=== PATIENT | male | born 1955 | race Caucasian/White ===

== ENCOUNTER 2018-01-12 17:28 | Emergency (ER) | payer BC ==
--- NOTE | 2018-01-12 17:52 | ERPHSYRPT ---
- History of Present Illness Time Seen by Provider: 01/12/18 17:32 Source: patient Exam Limitations: no limitations Patient Subjective Stated Complaint: Pt states "I have had head aches and low blood pressure for the past couple of weeks. 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 Pt ambulates with an upright steady gait, able to speak in clear full sentences. No apparent respiratory distress. Physician History: Patient with history of migraine headaches and coronary artery disease who presents with headaches, lightheadedness and dizziness. Patient states that he has had chronic migraine headaches that is in the frontal, bilateral, throbbing , intermittent and associated with photophobia and nausea. Patient states 5 days ago he noticed increase in dizziness, lightheadedness, difficulty gripping with both hands and generalized weakness. Patient denies any focal or unilateral symptoms at that time. Patient states that he called his Dr. an arrangement was made for him to be seen in the office. Patient states that symptoms did resolve and he did feel better, but had an episode 2 days ago similar with lightheadedness and dizziness. He states that symptoms were not as severe.. Patient denies any blurred vision, facial/focal deficit, numbness or tingling, no altered mental status and no speech deficits. Patient denies any recent illnesses well. patient had a head CT today which showed right sided subcortical hyperattenuation area. This was consistent with ischemic changes. No hemorrhage was noted. Patient was sent to the ER for further evaluation and care. Patient does take baby aspirin every day. Timing/Duration: day(s) (5), intermittent Severity: moderate Character of Deficits: new weakness, other (dizziness, difficulty gripping objects) Deficits: off balance, decrease ability to stand, decrease ability to walk Baseline/Normal Cognition: alert oriented x 3 Current Cognition: alert oriented x 3 Baseline Gait: walks w/o assistance Associated Symptoms: weakness (generalize), trouble walking, headache, No confusion, No loss of consciousness, No nausea, No vomiting, No numbness/ tingling in legs/feet, No paresthesia, No ringing in ears, No slurred speech, No vision changes, No chest pain Allergies/Adverse Reactions: No Known Drug Allergies Allergy (Unverified 12/02/13 12:18) Home Medications: Esomeprazole Magnesium [Nexium] 40 mg PO DAILY 12/02/13 [History] Aspirin [Aspir-Low] 81 mg PO DAILY 01/12/18 [History] Pravastatin Sodium [Pravastatin Sodium] 20 mg PO DAILY 01/12/18 [History] Ubidecarenone [Co Q-10] 100 mg PO DAILY 01/12/18 [History] Hx Tetanus, Diphtheria Vaccination/Date Given: No Hx Influenza Vaccination/Date Given: Yes Hx Pneumococcal Vaccination/Date Given: No Immunizations Up to Date: Yes - Review of Systems Constitutional: No Fever, No Chills Eyes: No Symptoms Ears, Nose, & Throat: No Symptoms Respiratory: No Symptoms, No Cough, No Dyspnea Cardiac: No Symptoms, No Chest Pain, No Edema, No Syncope Abdominal/Gastrointestinal: No Abdominal Pain, No Nausea, No Vomiting, No Diarrhea Genitourinary Symptoms: No Dysuria Musculoskeletal: No Symptoms, No Back Pain, No Neck Pain Skin: No Symptoms, No Rash Neurological: Dizziness, Gait Changes, Headache, No Focal Weakness, No Paralysis , No Parasthesia, No Sensory Changes, No Speech Changes Psychological: No Symptoms Endocrine: No Symptoms All Other Systems: Reviewed and Negative - Past Medical History Pertinent Past Medical History: Yes Cardiac History: Angina, Other GI Medical History: GERD - Past Surgical History Past Surgical History: Yes Musculoskeletal: Orthopedic Surgery Other Surgical History: LASIK,. Rt eye surgery - Social History Smoking Status: Never smoker Exposure to second hand smoke: Yes Drug Use: none Patient Lives Alone: No - Nursing Vital Signs Nursing Vital Signs: Initial Vital Signs Temperature 98.9 F 01/12/18 17:33 Pulse Rate 80 01/12/18 17:33 Respiratory Rate 18 01/12/18 17:33 Blood Pressure 137/94 01/12/18 17:33 O2 Sat by Pulse Oximetry 97 01/12/18 17:33 Pain Scale Pain Intensity 2 - Kriss Coma Scale Best Eye Response (Kriss): (4) open spontaneously Best Verbal Response (Kriss): (5) oriented Best Motor Response (Kriss): (6) obeys commands [place] Total: 15 - Physical Exam General Appearance: no apparent distress, alert Eye Exam: bilateral eye: normal inspection, PERRL, EOMI Ears, Nose, Throat Exam: normal ENT inspection, moist mucous membranes Neck Exam: normal inspection, non-tender, supple Respiratory: normal breath sounds, lungs clear, airway intact, No respiratory distress Cardiovascular: regular rate/rhythm, No edema Gastrointestinal: soft, No tenderness, No distention Back Exam: normal inspection Extremity Exam: normal inspection, No pedal edema Peripheral Pulses: dorsalis-pedis (R): 2+, dorsalis-pedis (L): 2+ Mental Status: alert, oriented 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, 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 These changes are consistent with acute ischemia) Ordered Tests: Active Orders 24 hr Category Date Time Status Gum Cook STAT Care 01/12/18 17:44 Active EKG-ER Only STAT Care 01/12/18 17:44 Active IV Insertion STAT Care 01/12/18 17:44 Active CBC W DIFF Stat Lab 01/12/18 17:50 Completed CK-Creatinine Phosphokinase Stat Lab 01/12/18 17:50 Completed CMP Stat Lab 01/12/18 17:50 Completed TROPONIN Q3H Lab 01/12/18 17:50 Completed TROPONIN Q3H Lab 01/12/18 20:45 Ordered TROPONIN Q3H Lab 01/12/18 23:45 Ordered Lab/Rad Data: Laboratory Result Diagrams 01/12/18 17:50 01/12/18 17:50 Laboratory Results 01/12/18 01/12/18 01/12/18 Range/Units 17:50 17:50 17:50 WBC 8.8 (4.0-10.5) K/mm3 RBC 5.02 (4.1-5.6) M/mm3 Hgb 15.5 (12.5-18.0) gm/dl Hct 46.2 (42-50) % MCV 92.0 (78-100) fl MCH 30.9 (26-32) pg MCHC 33.5 (32-36) g/dl RDW 14.2 H (11.5-14.0) % Plt Count 318 (150-450) K/mm3 MPV 9.0 (6-9.5) fl Gran % 56.9 (36.0-66.0) % Lymphocytes % 28.2 (24.0-44.0) % Monocytes % 10.7 (0.0-12.0) % Eosinophils % 3.6 (0.00-5.0) % Basophils % 0.6 (0.0-0.4) % Basophils # 0.05 (0-0.4) Sodium 138 (137-145) mmol/L Potassium 3.9 (3.5-5.1) mmol/L Chloride 104 (98-107) mmol/L Carbon Dioxide 23 (22-30) mmol/L Anion Gap 15.8 H (5-15) MEQ/L BUN 17 (9-20) mg/dL Creatinine 1.20 (0.66-1.25) mg/dL Estimated GFR > 60 ML/MIN Glucose 100 (74-106) mg/dL Calcium 9.2 (8.4-10.2) mg/dL Total Bilirubin 0.20 (0.2-1.3) mg/dL AST 24 (17-59) U/L ALT 24 (0-50) U/L Alkaline Phosphatase 76 (38-126) U/L Creatine Kinase 74 (55-170) U/L Troponin I < 0.012 (0.000-0.034) ng/mL Serum Total Protein 6.7 (6.3-8.2) g/dL Albumin 3.9 (3.5-5.0) g/dL - Progress Progress: unchanged Progress Note: Patiently given full dose aspirin 01/12/18 18:[address].: Other (Dr. Eagle, neurologist notified about pt. and agreed to accept for further care. Dr. Garcia, hospitalist was also notified and agreed to accept pt.) Counseled pt/family regarding: lab results, diagnosis, rad results - Departure Time of Disposition: 19:15 Departure Disposition: Transfer Clinical Impression: CVA (cerebral vascular accident) Condition: Stable Critical Care Time: No Referrals: MEKA,JOON F [Primary Care Provider] -
[2018-01-12 18:03] LABS: BASOPHIL % 0.6 % (0.0-0.4); Basophil (Absolute #) 0.05 (0-0.4); Eosinophil % 3.6 % (0.00-5.0); Eosinophil (Absolute #) 0.32 (0-0.5); Granulocyte Absolute (ANC) 4.99 (1.4-6.9); Granulocytes % 56.9 % (36.0-66.0); Hematocrit 46.2 % (42-50); Hemoglobin 15.5 gm/dl (12.5-18.0); Lymphocyte (Absolute #) 2.47 (1.0-4.6); Lymphocytes % 28.2 % (24.0-44.0); Mean Corpuscular Hemoglobin 30.9 pg (26-32); Mean Corpuscular Hgb Concent. 33.5 g/dl (32-36); Monocyte (Absolute #) 0.94 (0.0-1.3); Monocytes % 10.7 % (0.0-12.0); Platelet Count 318 K/mm3 (150-450); Red Blood Count 5.02 M/mm3 (4.1-5.6); Red Cell Distribution Width 14.2 % (11.5-14.0); White Blood Count 8.8 K/mm3 (4.0-10.5)
[2018-01-12 18:21] LABS: ALBUMIN 3.9 g/dL (3.5-5.0); ALKALINE PHOSPHATASE 76 U/L (38-126); ANION GAP 15.8 MEQ/L (5-15); BLOOD UREA NITROGEN 17 mg/dL (9-20); CHLORIDE 104 mmol/L (98-107); CK-Creatinine Phosphokinase 74 U/L (55-170); Calcium 9.2 mg/dL (8.4-10.2); Carbon Dioxide 23 mmol/L (22-30); Glucose 100 mg/dL (74-106); Potassium 3.9 mmol/L (3.5-5.1); SGOT/AST 24 U/L (17-59); SGPT/ALT 24 U/L (0-50); SODIUM 138 mmol/L (137-145); Total Protein 6.7 g/dL (6.3-8.2)
[2018-01-12 20:28] VITALS: BP 125/80
[2018-01-12 20:48] VITALS: PULSE 70; O2SAT 98
== END 2018-01-12 20:48 | disposition short-term general hospital (02) ==
LOC: ED 17:28
DX: I63.9 Cerebral infarction, unspecified (principal); R51 Headache; R42 Dizziness and giddiness; Z79.82 Long term (current) use of aspirin
CPT/HCPCS: 36000; 36415; 80053; 82550; 84484; 85025; 93005; 93041; 99285

== ENCOUNTER 2019-03-18 16:42 | Emergency (ER) | payer MEDICARE, BC ==
[2019-03-18 17:11] VITALS: BP 116/74; PULSE 66; O2SAT 97
[2019-03-18] MEDS ORDERED: KEFLEX 500 MG PO ONE (17:17)
[2019-03-18] MEDS ORDERED: Adacel Vial IM ONE ×2 (17:17→17:34)
[2019-03-18] MEDS ORDERED: XYLOCAINE 1% HCL 20 ML MDV ONE (17:19)
--- NOTE | 2019-03-18 17:29 | ERPHSYRPT ---
- History of Present Illness Time Seen by Provider: 03/18/19 17:18 Source: patient Patient Subjective Stated Complaint: cut left thumb while cutting potatoes Triage Nursing Assessment: 1cm laceration to end of left thumb with minimal bleeding. is able to bend thumb without difficulty. Physician History: mild ache left thumb today, cut with knife by accident, bleeding controlled, transverse 1cm laceration, nontender bony thumb, sen and pulses intact, jessica, no other injury Allergies/Adverse Reactions: No Known Drug Allergies Allergy (Verified 03/18/19 16:57) Home Medications: Ubidecarenone [Co Q-10] 100 mg PO DAILY 01/12/18 [History] Atorvastatin Calcium [Lipitor] 80 mg PO DAILY 03/18/19 [History] Clopidogrel Bisulfate [Clopidogrel] 75 mg PO DAILY 03/18/19 [History] Gabapentin 600 mg PO TID 03/18/19 [History] Isomethept/Dichlphn/Acetaminop [Wanfsibbvd-Glqyfjutmc-Xvjuzjvt] 1 each PO UD [History] Omeprazole 20 mg PO DAILY 03/18/19 [History] Hx Tetanus, Diphtheria Vaccination/Date Given: No Hx Influenza Vaccination/Date Given: Yes Hx Pneumococcal Vaccination/Date Given: Yes - Review of Systems Musculoskeletal: No Joint Pain Skin: Skin Lesions Neurological: No Dizziness - Past Medical History Pertinent Past Medical History: Yes Neurological History: Migraines, Stroke Cardiac History: Myocardial Infarction ([place]) Respiratory History: No Pertinent History Endocrine Medical History: Adrenal Insufficiency Musculoskeletal History: Osteoarthritis GI Medical History: GERD Other Medical History: R knee scope, Pt notes he needs a L TKA. - Past Surgical History Past Surgical History: Yes Musculoskeletal: Orthopedic Surgery Other Surgical History: LASIK,. Rt eye surgery. scope on bilat knees - Social History Smoking Status: Never smoker Exposure to second hand smoke: No Drug Use: none Patient Lives Alone: No - Nursing Vital Signs Nursing Vital Signs: Initial Vital Signs Temperature 98.2 F 03/18/19 16:53 Pulse Rate 66 03/18/19 16:53 Respiratory Rate 16 03/18/19 16:53 Blood Pressure 116/74 03/18/19 16:53 O2 Sat by Pulse Oximetry 97 03/18/19 16:53 Pain Scale Pain Intensity 0 - Physical Exam General Appearance: no apparent distress Extremity Exam: normal range of motion Neurologic Exam: alert, oriented x 3, cooperative Skin Exam: other (as in hpi) SpO2: 97 O2 Delivery: Room Air Procedures - Additional Procedures Progress: sterile prep, 1% local lidocaine, copious irrigation, no fb or tendon lac seen, 3 interrupted 4-0 nylon to close, sutures out in one week - Course Nursing assessment & vital signs reviewed: Yes - Progress Progress: improved Progress Note: 03/18/19 17:30 keflex, wound care sutures out in one week Counseled pt/family regarding: diagnosis, need for follow-up - Departure Departure Disposition: Home Clinical Impression: Laceration Condition: Stable Critical Care Time: No Referrals: JOON ACKERMAN [Primary Care Provider] - Additional Instructions: wound care Prescriptions: Cephalexin 250 mg/5 ml Susp [Keflex 250 mg/5 ml Susp] 5 ml PO QID #100 bottle
[2019-03-18] MEDS ORDERED: BACIGUENT PACKET TP ONE (17:32)
[2019-03-18] MEDS ORDERED: BACIGUENT PACKET ONE (17:33)
[2019-03-18] MEDS ORDERED: KEFLEX 500 MG ONE (17:34)
[2019-03-18] MEDS ORDERED: XYLOCAINE 1% HCL 20 ML MDV IJ ONE (17:34)
== END 2019-03-18 17:50 | disposition home or self-care (01) ==
LOC: ED 16:42
DX: S61.012A Laceration without foreign body of left thumb without damage to nail, initial encounter (principal); W26.0XXA Contact with knife, initial encounter; Z79.899 Other long term (current) drug therapy
CPT/HCPCS: 12001; 90471; 90715; 96372; 99284; A9270-GY

== ENCOUNTER 2022-11-17 06:31 | Day surgery (SDC) | payer MEDICARE, BC ==
[~2022-11-17 06:31] MED LIST: Lactated Ringers 1,000 ML IV SCH
[2022-11-17] MEDS ORDERED: Xylocaine-Mpf 2% 5 Ml Vial ONE (07:33)
[2022-11-17] MEDS ORDERED: DIPRIVAN 200 MG/20 ML IV ONE (07:33)
[2022-11-17] MEDS ORDERED: ATROPINE SULFATE 1MG ONE (08:00)
[2022-11-17] MEDS ORDERED: Ephedrine Sulfate 50 MG/ML ONE (08:03)
[2022-11-17 08:39] VITALS: O2SAT 99
[2022-11-17 08:54] VITALS: BP 116/69; PULSE 72
--- NOTE | 2022-11-17 10:47 | OP ---
SURGERY DATE/TIME: 11/17/2022 0750 PREOPERATIVE DIAGNOSIS: History of colon polyps. POSTOPERATIVE DIAGNOSIS: Small polyp in the rectosigmoid colon. PROCEDURE: Colonoscopy with cold forceps biopsy. SURGEON: Dr. Bates. ANESTHESIA: MAC. Medications given by anesthesia department. HISTORY: The patient is a 67-year-old white male patient presenting now for screening exam. He reports it has been about 6 to 7 years since his last colonoscopy. He reports he had them done in the past by Dr. Pa Anne and polyps have been removed. The patient was felt the need to have endoscopic evaluation. He was appraised of the risks of the procedure including the risk of perforation, phlebitis, untoward reaction to medication, bleeding and missed lesions. The patient verbalized his understanding and desired to have the procedure performed. DESCRIPTION OF PROCEDURE: The patient was given the medications by the anesthesia department. He had continuous pulse oximetry, ECG monitoring, intermittent blood pressure monitoring during the examination. He was placed in the left lateral decubitus position. A digital rectal examination was performed and revealed normal anal sphincter tone, no masses and a normal prostate. The flexible Olympus pediatric colonoscope was used to intubate the rectum. A view of the colon was developed sequentially to the cecum. Upon insertion and withdrawal, including a retroflex view in the rectum, was noted one small polyp in the lower sigmoid colon this was biopsied and destroyed using two passes of the cold forceps biopsy instrument. The scope was removed from the patient who tolerated the procedure well and was sent back to OP recovery in good condition. The prep was noted to be good.
== END 2022-11-17 09:04 | disposition home or self-care (01) ==
LOC: SDC 06:31
PROVIDERS: ATTEND Family Medicine
DX: Z09 Encounter for follow-up examination after completed treatment for conditions other than malignant neoplasm (principal); Z86.010 Personal history of colon polyps; D12.5 Benign neoplasm of sigmoid colon
CPT/HCPCS: J0461; J2704

== ENCOUNTER 2024-11-24 17:43 | Emergency (ER) | payer MEDICARE, BC | END 2024-11-24 18:53 | disposition left against medical advice (07) | LOC: ED 17:43 | DX: Z53.21 Procedure and treatment not carried out due to patient leaving prior to being seen by health care provider (principal) ==